=== PATIENT | female | born 1950 | race Caucasian/White ===

== ENCOUNTER 2017-05-25 05:36 | Inpatient (IN) ==
--- NOTE | 2017-05-25 06:52 | History and Physical Update ---
History and Physical Update - History and Physical H&P was reviewed, the patient examined and there: are no changes in the patients condition since last H&P was completed.
[2017-05-25] MEDS ORDERED: VANCOMYCIN INJ 1,000 MG in SODIUM CHLORIDE 0.9% 250 ML IV ONE (07:00)
[2017-05-25] MEDS ORDERED: DIAZEPAM 5 MG TABLET PO ONE (07:13)
[2017-05-25] MEDS ORDERED: FAMOTIDINE 20 MG TABLET PO ONE (07:13)
[2017-05-25] MEDS ORDERED: VANCOMYCIN 1,000 MG VIAL ONE (07:28)
[2017-05-25] MEDS ORDERED: ceFAZolin 1,000 MG VIAL ONE (07:28)
[2017-05-25] MEDS ORDERED: DIAZEPAM 5 MG TABLET ONE (07:28)
[2017-05-25] MEDS ORDERED: SODIUM CHLORIDE 0.9% 100 ML IV ONE ×2 (07:29→11:11)
[2017-05-25] MEDS ORDERED: FAMOTIDINE 20 MG TABLET ONE (07:29)
[2017-05-25] MEDS: LACTATED RINGERS 1,000 ML IV SCH (07:44)
[2017-05-25] MEDS ORDERED: MIDAZOLAM 2 MG/2 ML VIAL ONE ×2 (08:33→11:10)
[2017-05-25] MEDS ORDERED: fentaNYL 100 MCG/2 ML VIAL ONE ×2 (08:34→11:10)
[2017-05-25] MEDS ORDERED: ROPIVACAINE 0.5% 30 ML VIAL ONE (09:18)
[2017-05-25] MEDS ORDERED: PROMETHAZINE 25 MG/1 ML VIAL IM PRN (10:42)
[2017-05-25] MEDS ORDERED: NALOXONE 0.4 MG/ML VIAL IV PRN (10:42)
[2017-05-25] MEDS ORDERED: HYDROmorphone 2 MG/1 ML VIAL IV PRN ×2 (10:42→11:38)
[2017-05-25] MEDS ORDERED: TEMAZEPAM 7.5 MG CAPSULE PO PRN (10:42)
[2017-05-25] MEDS ORDERED: MAGNESIUM HYDROXIDE SUSP 30 ML UDCUP PO PRN (10:42)
[2017-05-25] MEDS ORDERED: LACTULOSE 20 GM/30 ML UDCUP PO PRN (10:42)
[2017-05-25] MEDS ORDERED: ONDANSETRON 4 MG/2 ML VIAL IV PRN ×2 (10:42→11:38)
[2017-05-25] MEDS ORDERED: diphenhydrAMINE CAP 25 MG CAPSULE PO PRN (10:42)
[2017-05-25] MEDS ORDERED: BISACODYL 10 MG SUPP RECTAL PRN (10:42)
[2017-05-25] MEDS ORDERED: DICLOFENAC 1% GEL 100 GM TUBE TOP PRN (10:44)
--- NOTE | 2017-05-25 11:06 | Anesthesia Post-Op ---
Anesthesia Post OP - Post Ansesthetic Evaluation Patient seen in post op: Yes Resp: within normal limits CV: within normal limits Mental: within normal limits Temp: within normal limits Tken-Xa-Ldaoqrqnw: within normal limits Nausea and Vomiting: within normal limits Pain: within normal limits
[2017-05-25] MEDS ORDERED: TRANEXAMIC ACID 1,000 MG/10 ML VIAL IV ONE (11:09)
[2017-05-25] MEDS ORDERED: ACETAMINOPHEN 1,000 MG/100 ML VIAL IV ONE (11:10)
[2017-05-25] MEDS: HYDROmorphone PCA 30 MG/30 ML SYRINGE IV SCH (11:20)
[2017-05-25] MEDS ORDERED: HYDROmorphone PCA 30 MG/30 ML SYRINGE IV ONE (11:20)
[2017-05-25] MEDS ORDERED: ONDANSETRON 4 MG/2 ML VIAL ONE (11:35)
--- NOTE | 2017-05-25 11:39 | XRay Report ---
Exam: XR knee 2V RT Date: 05/25/2017 10:44 AM Indication: Joint replacement right knee total knee prosthesis Comparison: 08/22/2014 Technical: AP lateral Findings: Total knee prosthesis has been placed. The femoral and tibial components are intact. Osteotomy on the posterior aspect patella. Surgical clips and drainage catheters are present. Subcutaneous air and leg immobilizer noted. No obvious fracture present. Hemovac present. Impression: 1. Stable appearance of total knee prosthesis with drain and immobilizer as described. PROCEDURE INTERPRETED AT [facility] DEPARTMENT OF RADIOLOGY Final Report Signed by: Dr. Alvarado Hayes
[2017-05-25 11:51] LABS: Basophils % 0.6 % (0.0-0.8); Eosinophils # 0.3 10*3/uL (0.0-0.87); Eosinophils % 5.2 % (0.00-10.9); Hematocrit 31.8 VOL% (35.7-47.0); Hemoglobin 11.1 GM/DL (12.0-16.0); Immature Granulocytes % 0.6 %; Immature Granulocytes Absolute 0.03 #; Lymphocytes # 1.6 10*3/uL (1.4-4.0); Lymphocytes % 29.8 % (21.3-54.2); Mean Corpuscular HGB Conc 34.9 GM/DL (32-36); Mean Corpuscular Hemoglobin 31 PG (27-34); Mean Corpuscular Volume 89.3 FL (87-102); Monocytes # 0.5 10*3/uL (0.11-0.8); Monocytes % 8.4 % (1.7-12.7); Neutrophils % 55.4 % (38.7-73.9); Platelet Count 207 T/CUMM (130-400); Red Blood Count 3.56 MC/CUMM (3.8-5.5); Red Cell Distribution Width 12.5 % (9.3-17.3); White Blood Count 5.3 T/CUMM (4-12)
[2017-05-25] MEDS ORDERED: SCOPOLAMINE 1.5 MG PATCH TRANSDERM ONE ×2 (11:56→11:59)
[2017-05-25 12:21] LABS: Calcium 8.7 MG/DL (8.5-10.1); Osmolality,Calculated 281.1 MOS/KG (273-304); Potassium 3.5 MMOL/L (3.5-5.1)
--- NOTE | 2017-05-25 14:38 | Orthopedic Progress Note ---
Orthopedics - Subjective Interval history: Comfortable some mild nausea neurovascular intact discussed up in a.m. Exam - Constitutional Vitals: Period Temp Pulse Resp BP Sys/Rocha Pulse Ox Last 24 Hr 97.3 F-98.6 F 62-105 14-22 99-157/61-94 93-100 Results - Labs CBC & BMP: 05/25/17 11:47 05/25/17 11:47
--- NOTE | 2017-05-25 14:48 | Pulmonology Progress Note ---
Pulmonary - PN: Subj Interval history: Patient is a 67-year-old white lady that has significant arthritis in her knees. She originally was going to have a left knee replacement but her right knee was bothering her more. She came in today and had the right knee replaced. She did well with anesthesia and is breathing okay. She is complaining of some nausea. Otherwise she seems to be feeling okay. Exam (Progress Note) - Constitutional Vitals: Period Temp Pulse Resp BP Sys/Rocha Pulse Ox Last 24 Hr 97.3 F-98.6 F 62-105 14-22 99-157/61-94 93-100 General appearance: normal weight, no acute distress - Head Head exam: Present: normal inspection, normocephalic - Eye Eye exam: Present: EOMI. Absent: scleral icterus Pupils: Present: MAURICIO - ENT ENT exam: Present: normal exam - Neck Neck exam: Present: normal inspection. Absent: lymphadenopathy, thyromegaly - Respiratory Respiratory exam: Present: clear to auscultation bilaterally - Cardiovascular Cardiovascular exam: Present: regular rate and rhythm. Absent: gallop, systolic murmur - GI/Abdominal GI/Abdominal exam: Present: normal bowel sounds, soft. Absent: organomegaly, tenderness - Extremities Exam Extremities exam: Present: other (Right knee is splinted.). Absent: calf tenderness - Neurological Exam Neurological exam: Present: alert, oriented X3, CN II-XII intact - Psychiatric Psychiatric exam: Present: normal affect, normal mood - Skin Skin exam: Present: warm, dry Results - Labs CBC & BMP: 05/25/17 11:47 05/25/17 11:47 Assessment and Plan (1) Status post total right knee replacement Status: Acute Assessment and plan: The patient is quite healthy but has considerable arthritis of her knees. She came in today and had a right knee replacement. She is doing well postop. Current Visit: Yes (2) Osteoarthritis Status: Acute Assessment and plan: The patient did well with a right knee replacement. She is planning on having a left knee replacement at some point in the future. Current Visit: Yes
--- NOTE | 2017-05-25 16:51 | Operative Note ---
DATE of SURGERY: 05/25/2017 PREOPERATIVE DIAGNOSIS: OSTEOARTHRITIS, RIGHT KNEE. POSTOPERATIVE DIAGNOSIS: SAME. OPERATIVE PROCEDURE: RIGHT TOTAL KNEE ([place]). SURGEON: Eloy Olea Jr., MD ANESTHESIA: Spinal. INDICATIONS: A 67-year-old white female with severe bilateral arthritis, right worse than left. She has maximized conservative treatments to the years including multiple medications and injections. S he was recently evaluated and felt to be candidate for total knee, presenting today for elective proc edure. OPERATIVE PROCEDURE: The patient was taken to the operating room and under spinal anesthetic, positi oned in supine position. The right leg positioned, prepped and draped in a usual sterile manner. Sh e received Ancef and vancomycin preoperatively. The limb was elevated, exsanguinated, and the tourni quet inflated to 250 mmHg. A midline incision was made over the anterior aspect of the right knee. Sharp dissection was carried down through skin and subcutaneous tissue. A median parapatellar arthro lois performed with the knee revealing extensive tricompartmental degenerative changes. Intramedulla ry alignment guides were used to make the appropriate cuts about the distal femur and proximal tibia. The femur was sized to a 5 and the tibia to a 4. A 6-mm fixed bearing selected. The PCL retained. The patellar resurfaced with 35-button and removal of the trial components, the knee was copiously irrigated, and then all three components were cemented into place. The wound was closed over two 1/8 inch Hemovac drains in a standard fashion. After irrigation, this included #1 Vicryl for the arthro lois, 2-0 Vicryl for the subcutaneous layer and aidan for skin. Tourniquet was deflated during wou nd closure 38 minutes. Sterile dressing applied, she was taken to recovery room in stable condition.
[2017-05-25] MEDS: HYDROXYCHLOROQUINE 200 MG TABLET PO SCH (20:50)
[2017-05-25] MEDS: DOCUSATE SODIUM 100 MG CAPSULE PO SCH (20:50)
[2017-05-25] MEDS: DICLOFENAC SODIUM 75 MG TABLET PO SCH (20:50)
[2017-05-25] MEDS: FONDAPARINUX 2.5 MG/0.5 ML SYRINGE SUBCUT SCH (20:50)
[2017-05-26 06:29] LABS: Basophils % 0.1 % (0.0-0.8); Eosinophils % 0.2 % (0.00-10.9); Hematocrit 32.5 VOL% (35.7-47.0); Hemoglobin 11.1 GM/DL (12.0-16.0); Immature Granulocytes % 0.5 %; Immature Granulocytes Absolute 0.05 #; Lymphocytes # 0.7 10*3/uL (1.4-4.0); Mean Corpuscular HGB Conc 34.2 GM/DL (32-36); Mean Corpuscular Hemoglobin 31 PG (27-34); Mean Corpuscular Volume 90.3 FL (87-102); Mean Platelet Volume 9.2 FL (9.6-12.0); Monocytes # 0.9 10*3/uL (0.11-0.8); Monocytes % 9.3 % (1.7-12.7); Neutrophils # 8.1 10*3/uL (1.4-7.4); Neutrophils % 82.9 % (38.7-73.9); Platelet Count 204 T/CUMM (130-400); Red Cell Distribution Width 12.8 % (9.3-17.3); White Blood Count 9.8 T/CUMM (4-12)
[2017-05-26 06:49] LABS: Calcium 9.1 MG/DL (8.5-10.1); Osmolality,Calculated 281.3 MOS/KG (273-304); Potassium 3.4 MMOL/L (3.5-5.1)
--- NOTE | 2017-05-26 08:52 | Orthopedic Progress Note ---
Orthopedics - Subjective Interval history: Hemoglobin 11 comfortable neurovascular intact. Drain removed start PT Exam - Constitutional Vitals: Period Temp Pulse Resp BP Sys/Rocha Pulse Ox Last 24 Hr 96.6 F-97.9 F 57-105 14-22 99-157/53-94 91-100 Results - Labs CBC & BMP: 05/26/17 06:00 05/26/17 06:00
[2017-05-26] MEDS: HYDROXYCHLOROQUINE 200 MG TABLET PO SCH ×2 (09:38→21:21)
[2017-05-26] MEDS: DOCUSATE SODIUM 100 MG CAPSULE PO SCH ×2 (09:38→21:21)
[2017-05-26] MEDS: LACTATED RINGERS 1,000 ML IV SCH (09:38)
[2017-05-26] MEDS: DICLOFENAC SODIUM 75 MG TABLET PO SCH ×2 (09:38→21:21)
[2017-05-26] MEDS: HYDROmorphone PCA 30 MG/30 ML SYRINGE IV SCH (10:42)
--- NOTE | 2017-05-26 13:27 | Pathology Report from [facility] ---
[facility] ACCESSION # : [id number] PATIENT NAME : Joselyn Rush ORDERING DR : BERTIN WELLER JR, MD CLINICAL HX: Osteoarthritis POST-OP DX: Same SPECIMEN INFO: Right knee bone GROSS DESCRIPTION: The specimen is received in formalin labeled with the patients name and consists of fragments of bone, cartilage and soft tissue collectively measuring 9.5 x 10.6 cm. The articular surfaces are focally degenerative with cartilage lipping and osteophyte formation present with an area of subchondral eburnation measuring up to 2.2 cm. Lead Infrastructure Architect tissue submitted in one cassette following decalcification. DIAGNOSIS FOR JOSELYN RUSH: Fragments of right knee joint showing changes of degenerative joint disease/ osteoarthritis. COLLECTED DATE: 05/25/2017 [facility] [place] DATE: 05/26/2017 ELECTRONICALLY SIGNED BY: Law Mar M.D. 05/26/2017 - 10:22:17 [facility]
--- NOTE | 2017-05-26 15:07 | Pulmonology Progress Note ---
Pulmonary - PN: Subj Interval history: Patient is a 67-year-old white lady that has significant arthritis in her knees. She originally was going to have a left knee replacement but her right knee was bothering her more. She came in and had the right knee replaced. She had a fairly good night and feels a little better today. Her nausea is doing much better. She has started to do a little bit of physical therapy. She is not having any shortness of breath. Exam (Progress Note) - Constitutional Vitals: Period Temp Pulse Resp BP Sys/Rocha Pulse Ox Last 24 Hr 96.6 F-98.7 F 57-85 16-20 101-130/53-75 91-97 Exam: General appearance: normal weight, no acute distress, she does look pale - Head Head exam: Present: normal inspection, normocephalic - Eye Eye exam: Present: EOMI. Absent: scleral icterus Pupils: Present: MUARICIO - ENT ENT exam: Present: normal exam - Neck Neck exam: Present: normal inspection. Absent: lymphadenopathy, thyromegaly - Respiratory Respiratory exam: Present: clear to auscultation bilaterally, she has good air movement. - Cardiovascular Cardiovascular exam: Present: regular rate and rhythm. Absent: gallop, systolic murmur - GI/Abdominal GI/Abdominal exam: Present: normal bowel sounds, soft. Absent: organomegaly, tenderness - Extremities Exam Extremities exam: Present: other (Right knee is splinted.). Absent: calf tenderness - Neurological Exam Neurological exam: Present: alert, oriented X3, CN II-XII intact - Psychiatric Psychiatric exam: Present: normal affect, normal mood - Skin Skin exam: Present: warm, dry Results - Labs CBC & BMP: 05/26/17 06:00 05/26/17 06:00 Assessment and Plan (1) Status post total right knee replacement Status: Acute Assessment and plan: The patient is quite healthy but has considerable arthritis of her knees. She came in and had a right knee replacement. She had a fairly good night and is moving around a little better. Her discomfort is under control. Overall she is stable postop. Current Visit: Yes (2) Osteoarthritis Status: Acute Assessment and plan: The patient did well with a right knee replacement. She is planning on having a left knee replacement at some point in the future. Current Visit: Yes
[2017-05-26] MEDS ORDERED: FUROSEMIDE 40 MG/4 ML VIAL IV ONE (15:26)
--- NOTE | 2017-05-26 16:08 | XRay Report ---
Portable chest. Indication: Decreased O2 saturations. Hypoxia. The heart is normal in size. There are moderate platelike areas of atelectasis present at each lung base. There is elevation of the right hemidiaphragm. The pulmonary vasculature is normal. No pneumothorax or pleural effusion. Degenerative changes are noted within the spinal column and shoulders. Impression: Prominent platelike areas of atelectasis are seen at each lung base, worse on the right. Follow-up recommended. PROCEDURE INTERPRETED AT [facility] DEPARTMENT OF RADIOLOGY Final Report Signed by: Dr. Zuelika Jain
[2017-05-26] MEDS: FONDAPARINUX 2.5 MG/0.5 ML SYRINGE SUBCUT SCH (21:21)
[2017-05-27] MEDS: ALBUTEROL 2.5 MG/3 ML NEB RESP TX SCH ×4 (00:30→23:39)
[2017-05-27 05:03] LABS: Basophils % 0.3 % (0.0-0.8); Eosinophils % 0.4 % (0.00-10.9); Hematocrit 28.7 VOL% (35.7-47.0); Immature Granulocytes % 0.4 %; Immature Granulocytes Absolute 0.04 #; Lymphocytes # 1.2 10*3/uL (1.4-4.0); Lymphocytes % 13.7 % (21.3-54.2); Mean Corpuscular HGB Conc 34.8 GM/DL (32-36); Mean Corpuscular Hemoglobin 31 PG (27-34); Mean Corpuscular Volume 88.6 FL (87-102); Mean Platelet Volume 9.5 FL (9.6-12.0); Monocytes % 10.9 % (1.7-12.7); Neutrophils # 6.7 10*3/uL (1.4-7.4); Neutrophils % 74.3 % (38.7-73.9); Platelet Count 201 T/CUMM (130-400); Red Blood Count 3.24 MC/CUMM (3.8-5.5); Red Cell Distribution Width 12.8 % (9.3-17.3); White Blood Count 9.1 T/CUMM (4-12)
[2017-05-27] MEDS: HYDROXYCHLOROQUINE 200 MG TABLET PO SCH ×2 (08:58→21:00)
[2017-05-27] MEDS: DOCUSATE SODIUM 100 MG CAPSULE PO SCH ×2 (08:58→21:05)
[2017-05-27] MEDS: DICLOFENAC SODIUM 75 MG TABLET PO SCH ×2 (08:59→21:01)
--- NOTE | 2017-05-27 09:10 | Pulmonology Progress Note ---
Pulmonary - PN: Subj Interval history: Patient is a 67-year-old white lady that has significant arthritis in her knees. She originally was going to have a left knee replacement but her right knee was bothering her more. She came in and had the right knee replaced. Yesterday she had some nausea and she did drop her O2 saturations a little bit. She just did not feel that well but no chest pain or pleurisy. She looks much better today. She says she is not short of breath or coughing. She is hungry and wants regular food. She feels like she can do more therapy today. Her color overall looks better. Exam (Progress Note) - Constitutional Vitals: Period Temp Pulse Resp BP Sys/Rocha Pulse Ox Last 24 Hr 97.5 F-98.7 F 79-89 16-20 118-141/55-70 92-98 Exam: General appearance: normal weight, no acute distress, she looks better today and in no distress. - Head Head exam: Present: normal inspection, normocephalic - Eye Eye exam: Present: EOMI. Absent: scleral icterus Pupils: Present: MAURICIO - ENT ENT exam: Present: normal exam - Neck Neck exam: Present: normal inspection. Absent: lymphadenopathy, thyromegaly - Respiratory Respiratory exam: Present: clear to auscultation bilaterally, she has good air movement. I do not hear any rales or wheezing. - Cardiovascular Cardiovascular exam: Present: regular rate and rhythm. Absent: gallop, systolic murmur - GI/Abdominal GI/Abdominal exam: Present: normal bowel sounds, soft. Absent: organomegaly, tenderness - Extremities Exam Extremities exam: Present: other (Right knee is splinted.). Absent: calf tenderness - Neurological Exam Neurological exam: Present: alert, oriented X3, CN II-XII intact - Psychiatric Psychiatric exam: Present: normal affect, normal mood - Skin Skin exam: Present: warm, dry Results - Labs CBC & BMP: 05/27/17 03:14 05/26/17 06:00 - Diagnostic Findings Procedure: Chest x-ray: image reviewed by me, report reviewed by me (Chest x- ray yesterday showed mild bibasilar infiltrates.) Assessment and Plan (1) Status post total right knee replacement Status: Acute Assessment and plan: The patient is quite healthy but has considerable arthritis of her knees. She came in and had a right knee replacement. She is feeling better today and looks like she may be able to do more activity today. Current Visit: Yes (2) Osteoarthritis Status: Acute Assessment and plan: The patient did well with a right knee replacement. She is planning on having a left knee replacement at some point in the future. Current Visit: Yes (3) Hypoxemia Status: Acute Assessment and plan: She looks like she had some mild postop atelectasis and is doing better now. She is not having any chest pain or pleurisy and her shortness of breath has resolved. She is starting to do more activity. Current Visit: Yes
--- NOTE | 2017-05-27 13:22 | Orthopedic Progress Note ---
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
[2017-05-27] MEDS: NYSTATIN CREAM 15 GM TUBE TOP SCH ×2 (15:35→21:03)
[2017-05-27] MEDS: FONDAPARINUX 2.5 MG/0.5 ML SYRINGE SUBCUT SCH (21:01)
[2017-05-28] MEDS: ALBUTEROL 2.5 MG/3 ML NEB RESP TX SCH ×3 (07:00→23:43)
--- NOTE | 2017-05-28 08:32 | Orthopedic Progress Note ---
Orthopedics - Subjective Interval history: Progressing well with PT likely home tomorrow after PT session no new complaints Exam - Constitutional Vitals: Period Temp Pulse Resp BP Sys/Rocha Pulse Ox Last 24 Hr 96.9 F-98.0 F 78-89 15-20 116-140/67-77 92-99 Results - Labs CBC & BMP: 05/27/17 03:14 05/26/17 06:00
--- NOTE | 2017-05-28 08:37 | Pulmonology Progress Note ---
Pulmonary - PN: Subj Interval history: Patient is a 67-year-old white lady that has significant arthritis in her knees. She originally was going to have a left knee replacement but her right knee was bothering her more. She came in and had the right knee replaced. She is starting to do more physical therapy and is feeling better. She is not having any trouble with her breathing now. She says she is not coughing or short of breath. She is doing well with therapy. Exam (Progress Note) - Constitutional Vitals: Period Temp Pulse Resp BP Sys/Rocha Pulse Ox Last 24 Hr 96.9 F-98.0 F 78-89 15-20 116-140/67-77 92-99 Exam: General appearance: normal weight, no acute distress, she looks better today and in no distress. She looks quite comfortable in bed today. - Head Head exam: Present: normal inspection, normocephalic - Eye Eye exam: Present: EOMI. Absent: scleral icterus Pupils: Present: MAURICIO - ENT ENT exam: Present: normal exam - Neck Neck exam: Present: normal inspection. Absent: lymphadenopathy, thyromegaly - Respiratory Respiratory exam: Present: clear to auscultation bilaterally, she has good air movement. I do not hear any rales or wheezing. - Cardiovascular Cardiovascular exam: Present: regular rate and rhythm. Absent: gallop, systolic murmur - GI/Abdominal GI/Abdominal exam: Present: normal bowel sounds, soft. Absent: organomegaly, tenderness - Extremities Exam Extremities exam: Present: other (Right knee is splinted.). She has no increased swelling or signs of phlebitis. - Neurological Exam Neurological exam: Present: alert, oriented X3, CN II-XII intact - Psychiatric Psychiatric exam: Present: normal affect, normal mood - Skin Skin exam: Present: warm, dry Results - Labs CBC & BMP: 05/27/17 03:14 05/26/17 06:00 Assessment and Plan (1) Status post total right knee replacement Status: Acute Assessment and plan: The patient is quite healthy but has considerable arthritis of her knees. She came in and had a right knee replacement. She is feeling better today and doing well with physical therapy. Current Visit: Yes (2) Osteoarthritis Status: Acute Assessment and plan: The patient did well with a right knee replacement. She is planning on having a left knee replacement at some point in the future. Current Visit: Yes (3) Hypoxemia Status: Acute Assessment and plan: She looks like she had some mild postop atelectasis and is doing better now. She is not having any chest pain or pleurisy and her shortness of breath has resolved. She looks comfortable and in no distress. Her O2 saturation is still a little on the low side. Otherwise she is not having any symptoms. Will continue respiratory therapy for now. Current Visit: Yes
[2017-05-28] MEDS: DOCUSATE SODIUM 100 MG CAPSULE PO SCH ×2 (09:18→20:26)
[2017-05-28] MEDS: DICLOFENAC SODIUM 75 MG TABLET PO SCH ×2 (09:18→20:26)
[2017-05-28] MEDS: NYSTATIN CREAM 15 GM TUBE TOP SCH ×2 (09:18→20:26)
[2017-05-28] MEDS: HYDROXYCHLOROQUINE 200 MG TABLET PO SCH ×2 (09:18→20:26)
[2017-05-28] MEDS: FONDAPARINUX 2.5 MG/0.5 ML SYRINGE SUBCUT SCH (20:26)
[2017-05-29] MEDS: ALBUTEROL 2.5 MG/3 ML NEB RESP TX SCH (07:18)
--- NOTE | 2017-05-29 07:32 | Orthopedic Progress Note ---
Orthopedics - Subjective Interval history: Doing well home later today possible if has good PT session home health set up to start tomorrow Exam - Constitutional Vitals: Period Temp Pulse Resp BP Sys/Rocha Pulse Ox Last 24 Hr 96.9 F-98.9 F 79-105 16-20 109-140/52-79 84-99 Results - Labs CBC & BMP: 05/27/17 03:14 05/29/17 01:56 Specialty Discharge - Follow Up or Referrals Follow up with: Eloy Olea Jr., MD [Physician] - 06/23/17 12:45 pm
--- NOTE | 2017-05-29 07:36 | Discharge Summary ---
Hospital Course - Hospital Course Hospital Course: Admitted for right total knee elective. Discharged home Diagnosis - Discharge Diagnosis (1) Osteoarthritis of right knee Status: Acute Specialty Discharge - Follow Up or Referrals Follow up with: Eloy Olea Jr., MD [Physician] - 06/23/17 12:45 pm Discharge Plan - Discharge Data Disposition: Home Health Service Condition at Discharge: Stable Discharge Diet: advance to your usual diet Activity: ambulate only with your walker, as per physical therapy, increase activity as tolerated Hygiene: may shower, keep area(s) dry Weight Bearing at Discharge: weight bear as tolerated - Discharge Medications New HYDROcodone/ACETAMIN 7.5-325 [[place] 7.5-325] 1 tablet PO Q4H PRN #25 tablet PRN Reason: Pain Moderate (4-7) Continue Hydroxychloroquine [Plaquenil] 200 mg PO BID Diclofenac 1% Gel [Voltaren 1% Gel] 1 applic TOP QID PRN PRN Reason: Pain Diclofenac Sodium Tab [Voltaren] 75 mg PO BID - Follow Up or Referral Follow Up: Eloy Olea Jr., MD [Physician] - 06/23/17 12:45 pm - Forms/Instructions Additional Discharge Instructions: Discharged home with home health continue home medications [place] for pain aspirin once a day give Arixtra shot before discharge today weightbearing as tolerated total knee protocol with CPM unit aidan to be removed and wound Steri-Stripped June 08. Follow-up with me 4 weeks Exam - Constitutional Vitals: Period Temp Pulse Resp BP Sys/Rocha Pulse Ox Last 24 Hr 96.9 F-98.9 F 79-105 16-20 109-140/52-79 84-99 Discharge Results Labs on day of discharge: Labs from last 24 hours 05/29/17 01:56 Potassium 3.7 DS: Provider Date of admission: 05/25/17 05:36 Primary care physician: . No PCP Attending physician on admission: Eloy Olea Jr., MD Consults: 05/25/17 10:42 Consult to Case Mgmt/Social Srvs [CONS] Routine Reason for Case Mgmt/Social Srvs: Rehab Home Health Equipment Consult Comment: CPM Machine deliver to Patient before D/C home room 340. Consult to Occupational Therapy [CONS] Routine Reason for Occupational Therapy: Evaluate and Treat Consult Comment: ADL's Consult to Physical Therapy [CONS] Routine Reason for Physical Therapy: Evaluate and Treat Gait Training 05/25/17 10:44 Consult to Physician [CONS] Routine Comment: Consulting Provider: Uziel Herman Consulting Provider Notified: Yes When should Consulting Provider be notified: Now Person Notified: deja denson Date Notified: 05/25/17 Time Notified: 12:37 05/25/17 14:21 Consult to Pastoral Services [CONS] Routine Comment: Pastoral Screen: Request Elastic Attacher Chainstitch Visit Pastoral Screen Source of Request: Patient 05/27/17 10:01 Consult to Wound Care - [place] [CONS] Routine Reason for Wound Care: Wound Care Management Consult Comment: skin breakdown under each breast Discharging clinician: Eloy Olea Jr., MD
--- NOTE | 2017-05-29 08:00 | Pulmonology Progress Note ---
Pulmonary - PN: Subj Interval history: This 67-year-old lady had a right total knee replacement. She has had some postoperative atelectasis. No fever and not short of breath. She is doing incentive spirometry. Plans are for discharge today. Exam (Progress Note) - Constitutional Vitals: Period Temp Pulse Resp BP Sys/Rocha Pulse Ox Last 24 Hr 96.9 F-98.9 F 79-105 16-20 109-140/52-79 84-99 Exam: Patient is alert oriented vital signs normal. Pupils react to light. Throat is clear. Neck supple no bruits. Chest sounds clear. Heart normal rate and rhythm no murmurs. Abdomen soft no masses. Calves nontender. Bandage on the right knee. Results - Labs CBC & BMP: 05/27/17 03:14 05/29/17 01:56 Lab Results: I have reviewed the past 24 hour labs Assessment and Plan (1) Postoperative atelectasis Status: Acute Assessment and plan: Patient has continued with incentive spirometry and will do so at home. Plans are for discharge today. Room air oxygen saturation 94%. Current Visit: Yes (2) Status post total right knee replacement Status: Acute Assessment and plan: Participating in physical therapy and making progress. Current Visit: Yes (3) Osteoarthritis of right knee Status: Acute Assessment and plan: Continuing arthritis medications. She is on both oral and topical Voltaren. Current Visit: Yes Specialty Discharge - Follow Up or Referrals Follow up with: Eloy Olea Jr., MD [Physician] - 06/23/17 12:45 pm
[2017-05-29] MEDS: DOCUSATE SODIUM 100 MG CAPSULE PO SCH (08:36)
[2017-05-29] MEDS: HYDROXYCHLOROQUINE 200 MG TABLET PO SCH (08:36)
[2017-05-29] MEDS: NYSTATIN CREAM 15 GM TUBE TOP SCH (08:37)
[2017-05-29] MEDS: DICLOFENAC SODIUM 75 MG TABLET PO SCH (08:38)
[2017-05-29 09:40] VITALS: BP 109/59
[2017-05-29] MEDS: FONDAPARINUX 2.5 MG/0.5 ML SYRINGE SUBCUT SCH (10:41)
== END 2017-05-29 11:11 | disposition home health service (06) | DRG 470 ==
LOC: N.SDSINP 05:36 → N.3E 10:12
PROVIDERS: ADMIT Orthopaedic Surgery; ATTEND Orthopaedic Surgery

== ENCOUNTER 2017-11-23 05:33 | Inpatient (IN) ==
[2017-11-23] MEDS ORDERED: VANCOMYCIN 1,000 MG VIAL ONE (05:58)
[2017-11-23] MEDS ORDERED: ceFAZolin 1,000 MG VIAL ONE (05:58)
[2017-11-23] MEDS ORDERED: ceFAZolin 1,000 MG in SYRINGE 1 EACH IV ONE (06:00)
[2017-11-23] MEDS ORDERED: VANCOMYCIN INJ 1,000 MG in SODIUM CHLORIDE 0.9% 250 ML IV ONE (06:00)
[2017-11-23] MEDS ORDERED: DIAZEPAM 5 MG TABLET PO ONE (06:01)
[2017-11-23] MEDS ORDERED: FAMOTIDINE 20 MG TABLET PO ONE (06:01)
[2017-11-23] MEDS ORDERED: SCOPOLAMINE 1.5 MG PATCH TRANSDERM ONE ×2 (06:16→06:17)
[2017-11-23] MEDS ORDERED: TRANEXAMIC ACID 1,000 MG/10 ML VIAL IV ONE (06:17)
[2017-11-23] MEDS: LACTATED RINGERS 1,000 ML IV SCH (06:45)
[2017-11-23] MEDS ORDERED: NALOXONE 0.4 MG/ML VIAL IV PRN (07:05)
[2017-11-23] MEDS ORDERED: HYDROmorphone 2 MG/1 ML VIAL IV PRN (07:05)
[2017-11-23] MEDS ORDERED: LACTULOSE 20 GM/30 ML UDCUP PO PRN (07:05)
[2017-11-23] MEDS ORDERED: PROMETHAZINE 25 MG/1 ML VIAL IM PRN (07:05)
[2017-11-23] MEDS ORDERED: MAGNESIUM HYDROXIDE SUSP 30 ML UDCUP PO PRN (07:05)
[2017-11-23] MEDS ORDERED: TEMAZEPAM 7.5 MG CAPSULE PO PRN (07:05)
[2017-11-23] MEDS ORDERED: BISACODYL 10 MG SUPP RECTAL PRN (07:05)
[2017-11-23] MEDS ORDERED: ONDANSETRON 4 MG/2 ML VIAL IV PRN (07:05)
[2017-11-23] MEDS ORDERED: ROPIVACAINE 0.5% 30 ML VIAL ONE (08:33)
[2017-11-23] MEDS ORDERED: HYDROmorphone PCA 30 MG/30 ML SYRINGE IV ONE (08:48)
[2017-11-23] MEDS: HYDROmorphone PCA 30 MG/30 ML SYRINGE IV SCH (09:00)
[2017-11-23] MEDS: DOCUSATE SODIUM 100 MG CAPSULE PO SCH ×2 (11:19→21:43)
[2017-11-23] MEDS: DICLOFENAC SODIUM 75 MG TABLET PO SCH ×2 (11:19→21:43)
[2017-11-23] MEDS: HYDROXYCHLOROQUINE 200 MG TABLET PO SCH ×2 (11:19→21:43)
[2017-11-23] MEDS ORDERED: MIDAZOLAM 2 MG/2 ML VIAL ONE (11:25)
[2017-11-23] MEDS ORDERED: fentaNYL 100 MCG/2 ML VIAL ONE (11:25)
[2017-11-23] MEDS ORDERED: PROPOFOL 500 MG/50 ML BOTTLE IV ONE (11:26)
[2017-11-23] MEDS ORDERED: PROMETHAZINE 25 MG/1 ML VIAL ONE (11:26)
[2017-11-23] MEDS ORDERED: ONDANSETRON 4 MG/2 ML VIAL ONE (11:26)
[2017-11-23 12:04] LABS: Basophils % 0.3 % (0.0-0.8); Eosinophils # 0.3 10*3/uL (0.0-0.87); Eosinophils % 2.6 % (0.00-10.9); Hematocrit 32.1 VOL% (35.7-47.0); Hemoglobin 11.1 GM/DL (12.0-16.0); Immature Granulocytes % 0.3 %; Immature Granulocytes Absolute 0.03 #; Lymphocytes # 1.3 10*3/uL (1.4-4.0); Lymphocytes % 12.6 % (21.3-54.2); Mean Corpuscular HGB Conc 34.6 GM/DL (32-36); Mean Corpuscular Hemoglobin 30 PG (27-34); Mean Corpuscular Volume 87.5 FL (87-102); Monocytes # 0.7 10*3/uL (0.11-0.8); Monocytes % 6.8 % (1.7-12.7); Neutrophils % 77.4 % (38.7-73.9); Platelet Count 213 T/CUMM (130-400); Red Blood Count 3.67 MC/CUMM (3.8-5.5); Red Cell Distribution Width 13.2 % (9.3-17.3); White Blood Count 10.3 T/CUMM (4-12)
[2017-11-23 12:36] LABS: Calcium 8.7 MG/DL (8.5-10.1); Osmolality,Calculated 283.1 MOS/KG (273-304); Potassium 3.2 MMOL/L (3.5-5.1)
[2017-11-23] MEDS: ceFAZolin 1,000 MG in SYRINGE 1 EACH IV SCH ×2 (13:45→21:43)
[2017-11-23] MEDS: FONDAPARINUX 2.5 MG/0.5 ML SYRINGE SUBCUT SCH (17:25)
[2017-11-24 07:00] LABS: Basophils % 0.2 % (0.0-0.8); Eosinophils # 0.1 10*3/uL (0.0-0.87); Eosinophils % 1.3 % (0.00-10.9); Hematocrit 30.1 VOL% (35.7-47.0); Hemoglobin 10.5 GM/DL (12.0-16.0); Immature Granulocytes % 0.5 %; Immature Granulocytes Absolute 0.04 #; Lymphocytes # 0.9 10*3/uL (1.4-4.0); Lymphocytes % 10.2 % (21.3-54.2); Mean Corpuscular HGB Conc 34.9 GM/DL (32-36); Mean Corpuscular Hemoglobin 31 PG (27-34); Mean Platelet Volume 9.1 FL (9.6-12.0); Monocytes # 0.9 10*3/uL (0.11-0.8); Monocytes % 9.8 % (1.7-12.7); Neutrophils # 6.8 10*3/uL (1.4-7.4); Platelet Count 189 T/CUMM (130-400); Red Blood Count 3.42 MC/CUMM (3.8-5.5); Red Cell Distribution Width 13.3 % (9.3-17.3); White Blood Count 8.7 T/CUMM (4-12)
[2017-11-24] MEDS: LACTATED RINGERS 1,000 ML IV SCH (07:20)
[2017-11-24 07:28] LABS: Calcium 8.4 MG/DL (8.5-10.1); Osmolality,Calculated 279.4 MOS/KG (273-304); Potassium 3.5 MMOL/L (3.5-5.1)
[2017-11-24] MEDS: HYDROmorphone PCA 30 MG/30 ML SYRINGE IV SCH (07:32)
[2017-11-24] MEDS: DOCUSATE SODIUM 100 MG CAPSULE PO SCH ×2 (09:15→21:12)
[2017-11-24] MEDS: HYDROXYCHLOROQUINE 200 MG TABLET PO SCH ×2 (09:15→21:12)
[2017-11-24] MEDS: DICLOFENAC SODIUM 75 MG TABLET PO SCH ×2 (09:15→21:12)
[2017-11-24] MEDS: diphenhydrAMINE CAP 25 MG CAPSULE PO PRN ×2 (09:15→21:16)
[2017-11-24] MEDS: FONDAPARINUX 2.5 MG/0.5 ML SYRINGE SUBCUT SCH (17:45)
[2017-11-25 05:38] LABS: Basophils % 0.3 % (0.0-0.8); Eosinophils # 0.3 10*3/uL (0.0-0.87); Eosinophils % 3.6 % (0.00-10.9); Hematocrit 26.9 VOL% (35.7-47.0); Hemoglobin 9.2 GM/DL (12.0-16.0); Immature Granulocytes % 0.4 %; Immature Granulocytes Absolute 0.03 #; Lymphocytes # 0.9 10*3/uL (1.4-4.0); Mean Corpuscular HGB Conc 34.2 GM/DL (32-36); Mean Corpuscular Hemoglobin 31 PG (27-34); Mean Corpuscular Volume 89.4 FL (87-102); Mean Platelet Volume 9.2 FL (9.6-12.0); Monocytes # 0.6 10*3/uL (0.11-0.8); Monocytes % 9.2 % (1.7-12.7); Neutrophils # 5.1 10*3/uL (1.4-7.4); Neutrophils % 73.5 % (38.7-73.9); Platelet Count 173 T/CUMM (130-400); Red Blood Count 3.01 MC/CUMM (3.8-5.5); White Blood Count 6.9 T/CUMM (4-12)
[2017-11-25] MEDS: DICLOFENAC SODIUM 75 MG TABLET PO SCH ×2 (09:11→22:12)
[2017-11-25] MEDS: HYDROXYCHLOROQUINE 200 MG TABLET PO SCH ×2 (09:11→22:11)
[2017-11-25] MEDS: DOCUSATE SODIUM 100 MG CAPSULE PO SCH ×2 (09:11→22:12)
[2017-11-25] MEDS: LACTATED RINGERS 1,000 ML IV SCH (09:12)
[2017-11-25] MEDS: FONDAPARINUX 2.5 MG/0.5 ML SYRINGE SUBCUT SCH (17:46)
[2017-11-25] MEDS: diphenhydrAMINE CAP 25 MG CAPSULE PO PRN (22:11)
[2017-11-26 07:23] LABS: Basophils % 0.2 % (0.0-0.8); Eosinophils # 0.4 10*3/uL (0.0-0.87); Eosinophils % 6.7 % (0.00-10.9); Hematocrit 27.7 VOL% (35.7-47.0); Hemoglobin 9.7 GM/DL (12.0-16.0); Immature Granulocytes % 0.4 %; Immature Granulocytes Absolute 0.02 #; Lymphocytes % 18.3 % (21.3-54.2); Mean Corpuscular Hemoglobin 30 PG (27-34); Mean Corpuscular Volume 85.8 FL (87-102); Mean Platelet Volume 9.5 FL (9.6-12.0); Monocytes # 0.5 10*3/uL (0.11-0.8); Monocytes % 9.1 % (1.7-12.7); Neutrophils # 3.5 10*3/uL (1.4-7.4); Neutrophils % 65.3 % (38.7-73.9); Platelet Count 211 T/CUMM (130-400); Red Blood Count 3.23 MC/CUMM (3.8-5.5); Red Cell Distribution Width 12.9 % (9.3-17.3); White Blood Count 5.4 T/CUMM (4-12)
[2017-11-26] MEDS: DOCUSATE SODIUM 100 MG CAPSULE PO SCH (09:01)
[2017-11-26] MEDS: HYDROXYCHLOROQUINE 200 MG TABLET PO SCH (09:01)
[2017-11-26] MEDS: DICLOFENAC SODIUM 75 MG TABLET PO SCH (09:01)
[2017-11-26 11:47] VITALS: BP 128/68
== END 2017-11-26 14:55 | disposition home health service (06) | DRG 470 ==
LOC: N.SDSINP 05:33 → N.3E 08:14
PROVIDERS: ADMIT Orthopaedic Surgery; ATTEND Orthopaedic Surgery

== ENCOUNTER 2021-05-20 05:40 | Inpatient (IN) ==
[2021-05-14 13:10] LABS: Blood, Urine Negative (Negative); Glucose,Urine (UA) Negative (Negative); Hyaline Casts,Urine 92 /LPF (0-3); Ketones,Urine 5 mg/dL (Negative); Mucus,Urine Many /LPF (Occasional); Nitrite,Urine Negative (Negative); Protein,Urine 30 MG/DL; RBC,Urine 6 /HPF (0-4); Squamous Epithelial Cell,Urine Occasional /HPF (0-10); Urine Appearance CLOUDY (Clear); Urine Color Amber (Yellow)
[2021-05-14 13:13] LABS: Bilirubin,Urine Small mg/dL (Negative)
[2021-05-20] MEDS ORDERED: VANCOMYCIN INJ 1,000 MG in SODIUM CHLORIDE 0.9% 250 ML IV ONE (06:00)
[2021-05-20] MEDS: LACTATED RINGERS 1,000 ML IV SCH ×2 (06:40→11:21)
[2021-05-20] MEDS ORDERED: ACETAMINOPHEN 500 MG TABLET PO ONE (06:46)
[2021-05-20] MEDS ORDERED: SCOPOLAMINE 1.5 MG PATCH TRANSDERM ONE (06:46)
[2021-05-20] MEDS ORDERED: DIAZEPAM 5 MG TABLET PO ONE (06:46)
[2021-05-20] MEDS ORDERED: FAMOTIDINE 20 MG TABLET PO ONE (06:46)
[2021-05-20] MEDS ORDERED: GABAPENTIN 400 MG CAPSULE PO ONE (06:46)
[2021-05-20] MEDS ORDERED: LIDOCAINE 1% 5 ML VIAL ONE (08:43)
[2021-05-20] MEDS ORDERED: DEXAMETHASONE 4 MG/1 ML VIAL ONE (08:43)
[2021-05-20] MEDS ORDERED: MIDAZOLAM 2 MG/2 ML VIAL ONE (08:46)
[2021-05-20] MEDS ORDERED: fentaNYL 100 MCG/2 ML VIAL ONE (08:46)
[2021-05-20] MEDS ORDERED: ePHEDrine 50 MG/ML VIAL ONE (10:24)
[2021-05-20] MEDS ORDERED: BISACODYL 10 MG SUPP RECTAL PRN (10:54)
[2021-05-20] MEDS ORDERED: LACTULOSE 20 GM/30 ML UDCUP PO PRN (10:54)
[2021-05-20] MEDS ORDERED: PROMETHAZINE 25 MG/1 ML VIAL IM PRN (10:54)
[2021-05-20] MEDS ORDERED: diphenhydrAMINE CAP 25 MG CAPSULE PO PRN (10:54)
[2021-05-20] MEDS ORDERED: ONDANSETRON 4 MG/2 ML VIAL IV PRN (10:54)
[2021-05-20] MEDS ORDERED: MAGNESIUM HYDROXIDE SUSP 30 ML UDCUP PO PRN (10:54)
[2021-05-20] MEDS ORDERED: propofoL 200 MG/20 ML VIAL IV ONE (10:55)
[2021-05-20] MEDS ORDERED: SODIUM CHLORIDE 0.9% 100 ML IV ONE (10:56)
[2021-05-20] MEDS ORDERED: BUPIVACAINE SPINAL 0.75% 2 ML AMP SPINAL ONE (10:56)
[2021-05-20] MEDS ORDERED: PHENYLEPHRINE 1 MG/10 ML SYRINGE IV ONE (11:19)
[2021-05-20] MEDS ORDERED: TRANEXAMIC ACID 1,000 MG/10 ML VIAL ONE (11:19)
[2021-05-20] MEDS: ceFAZolin 2,000 MG/50 ML DUPLEX IV SCH ×2 (16:49→23:49)
[2021-05-20] MEDS: DOCUSATE SODIUM 100 MG CAPSULE PO SCH (20:51)
[2021-05-20] MEDS: HYDROXYCHLOROQUINE 200 MG TABLET PO SCH (20:51)
[2021-05-20] MEDS: ACETAMINOPHEN 500 MG TABLET PO SCH (20:51)
[2021-05-21 05:20] LABS: Basophils % 0.3 % (0.0-0.8); Eosinophils % 0.1 % (0.00-10.9); Hematocrit 29.7 VOL% (35.7-47.0); Hemoglobin 10.3 GM/DL (12.0-16.0); Immature Granulocytes % 0.4 %; Immature Granulocytes Absolute 0.03 #; Lymphocytes # 1.1 10*3/uL (1.4-4.0); Lymphocytes % 15.1 % (21.3-54.2); Mean Corpuscular HGB Conc 34.7 GM/DL (32-36); Mean Corpuscular Volume 90.8 FL (87-102); Mean Platelet Volume 9.1 FL (9.6-12.0); Monocytes % 11.1 % (1.7-12.7); Platelet Count 200 T/CUMM (130-400); Red Blood Count 3.27 MC/CUMM (3.8-5.5); Red Cell Distribution Width 12.6 % (9.3-17.3); White Blood Count 7.2 T/CUMM (4-12)
[2021-05-21 05:39] LABS: Osmolality,Calculated 272.8 MOS/KG (273-304)
[2021-05-21] MEDS: FONDAPARINUX 2.5 MG/0.5 ML SYRINGE SUBCUT SCH (05:55)
[2021-05-21] MEDS: CALCIUM (CARBONATE) 500 MG TABLET PO SCH (08:31)
[2021-05-21] MEDS: CYANOCOBALAMIN 500 MCG TABLET PO SCH (08:31)
[2021-05-21] MEDS: DOCUSATE SODIUM 100 MG CAPSULE PO SCH ×2 (08:31→21:50)
[2021-05-21] MEDS: CHOLECALCIFEROL 1,000 UNIT TABLET PO SCH (08:31)
[2021-05-21] MEDS: HYDROXYCHLOROQUINE 200 MG TABLET PO SCH ×2 (08:32→21:50)
[2021-05-21] MEDS: MORPHINE 2 MG/1 ML SYRINGE IV PRN ×2 (14:13→19:01)
[2021-05-21] MEDS: ACETAMINOPHEN 500 MG TABLET PO SCH (21:50)
[2021-05-21] MEDS: TEMAZEPAM 7.5 MG CAPSULE PO PRN (21:52)
[2021-05-21] MEDS: DICLOFENAC SODIUM 75 MG TABLET PO PRN (21:52)
[2021-05-22] MEDS: FONDAPARINUX 2.5 MG/0.5 ML SYRINGE SUBCUT SCH (05:47)
[2021-05-22] MEDS: CALCIUM (CARBONATE) 500 MG TABLET PO SCH (08:50)
[2021-05-22] MEDS: CHOLECALCIFEROL 1,000 UNIT TABLET PO SCH (08:50)
[2021-05-22] MEDS: HYDROXYCHLOROQUINE 200 MG TABLET PO SCH ×2 (08:51→21:00)
[2021-05-22] MEDS: CYANOCOBALAMIN 500 MCG TABLET PO SCH (08:51)
[2021-05-22] MEDS: DICLOFENAC SODIUM 75 MG TABLET PO PRN ×2 (08:51→21:00)
[2021-05-22] MEDS: DOCUSATE SODIUM 100 MG CAPSULE PO SCH ×2 (08:55→21:00)
[2021-05-22] MEDS: MORPHINE 2 MG/1 ML SYRINGE IV PRN (12:24)
[2021-05-22] MEDS: TEMAZEPAM 7.5 MG CAPSULE PO PRN (21:00)
[2021-05-22] MEDS: ACETAMINOPHEN 500 MG TABLET PO SCH (21:00)
[2021-05-23] MEDS: FONDAPARINUX 2.5 MG/0.5 ML SYRINGE SUBCUT SCH (06:19)
[2021-05-23 07:52] VITALS: BP 108/53
[2021-05-23] MEDS: CYANOCOBALAMIN 500 MCG TABLET PO SCH (09:26)
[2021-05-23] MEDS: DOCUSATE SODIUM 100 MG CAPSULE PO SCH (09:26)
[2021-05-23] MEDS: CALCIUM (CARBONATE) 500 MG TABLET PO SCH (09:26)
[2021-05-23] MEDS: HYDROXYCHLOROQUINE 200 MG TABLET PO SCH (09:27)
[2021-05-23] MEDS: CHOLECALCIFEROL 1,000 UNIT TABLET PO SCH (09:27)
== END 2021-05-23 10:55 | disposition home health service (06) | DRG 470 ==
LOC: N.OR 05:40 → N.SDSINP 05:42 → N.3E 10:54 → EDSTATUS 12:30
PROVIDERS: ADMIT Orthopaedic Surgery; ATTEND Orthopaedic Surgery